=== PATIENT | female | born 1985 | race Caucasian/White ===

== ENCOUNTER 2024-12-16 08:42 | Emergency (ER) | payer OTHER, MEDICAID ==
[~2024-12-16] VITALS: Ht 172.7 cm; Wt 70.0 kg
[2024-12-16 08:46] VITALS: BP 92/56; PULSE 124; RESP 16; O2SAT 98
[2024-12-16] MEDS ORDERED: TOPUD PO (11:46)
== END 2024-12-16 12:11 | disposition home or self-care (01) ==
LOC: ER 08:42
DX: M54.9 Dorsalgia, unspecified (principal); Z91.410 Personal history of adult physical and sexual abuse; V89.2XXA Person injured in unspecified motor-vehicle accident, traffic, initial encounter; Y93.89 Activity, other specified; Y92.89 Other specified places as the place of occurrence of the external cause; Y99.8 Other external cause status
CPT/HCPCS: 99283